=== PATIENT | male | born 1950 | race African-American/Black ===

== ENCOUNTER 2017-07-21 18:52 | Emergency (ER) | payer MEDICARE, MEDICAID ==
[~2017-07-21] VITALS: Ht 180.3 cm; Wt 80.0 kg
[2017-07-21 18:53] VITALS: BP 135/83
[2017-07-21] MEDS ORDERED: LIDOCAINE HCL 1% 20ML VIAL (Pyxis) INJ MC ONE (19:45)
[2017-07-21] MEDS ORDERED: BACITRACIN ZINC OINT UDPKT TOP ONE (19:45)
== END 2017-07-21 20:30 | disposition left against medical advice (07) ==
LOC: ER 20:05
DX: S01.111A Laceration without foreign body of right eyelid and periocular area, initial encounter (principal); F14.10 Cocaine abuse, uncomplicated; W20.8XXA Other cause of strike by thrown, projected or falling object, initial encounter; Y93.89 Activity, other specified; Y99.8 Other external cause status; Y92.89 Other specified places as the place of occurrence of the external cause
CPT/HCPCS: 99283; J3490